=== PATIENT | female | born 1980 | race Caucasian/White ===

== ENCOUNTER → 2018-01-17 | Outpatient (CLI) | payer OTHER ==
[~2018-01-17] MED LIST: ACYC-223 PO; LRT5 PO
== END | disposition home or self-care (01) ==
LOC: C.PAPS 10:15
PROVIDERS: ATTEND Physician Assistant
DX: Z12.4 Encounter for screening for malignant neoplasm of cervix (principal); Z11.51 Encounter for screening for human papillomavirus (HPV)